=== PATIENT | male | born 2000 | race Hispanic/Latino ===

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

== ENCOUNTER 2024-09-02 01:25 | Emergency (ER) | payer SELFPAY ==
[2024-09-02] MEDS ORDERED: IBUPROFEN 400 MG TAB ONE (01:54)
[2024-09-02] MEDS ORDERED: ONDANSETRON 4 MG (ODT) TAB ONE (01:54)
[2024-09-02 02:12] LABS: Influenza A Ag Negative
[2024-09-02 02:13] LABS: Influenza B Ag Negative; SARS-CoV-2 Antigen Rapid Res Negative (Negative)
--- NOTE | 2024-09-02 02:40 | ER ---
Nurse's Notes [facility] Name: Josh Malcolm Age: 24 yrs Sex: Male : 2000 Arrival Date: 09/02/2024 Time: 01:25 Bed 6 Private MD: Diagnosis: Acute tonsillitis, unspecified;Cough Presentation: 09/02 01:46 Chief complaint: Patient states: I have fever headache n/v, chills and body aches I bm8 just don't feel good. Coronavirus screen: At this time, the client does not indicate any symptoms associated with coronavirus-19. Ebola Screen: Patient negative for fever greater than or equal to 101.5 degrees Fahrenheit, and additional compatible Ebola Virus Disease symptoms Patient denies exposure to infectious person. Patient denies travel to an Ebola-affected area in the 21 days before illness onset. No symptoms or risks identified at this time. Initial Sepsis Screen: Does the patient meet any 2 criteria? No. Patient's initial sepsis screen is negative. Does the patient have a suspected source of infection? No. Patient's initial sepsis screen is negative. Risk Assessment: Do you want to hurt yourself or someone else? Patient reports no desire to harm self or others. Onset of symptoms was September 01, 2024 at 12:00. 01:46 Method Of Arrival: Ambulatory bm8 01:46 Acuity: BOYD 4 bm8 Triage Assessment: 01:48 General: Appears in no apparent distress. comfortable, Behavior is calm, cooperative, bm8 appropriate for age. Pain: Complains of pain in generalized body aches Pain currently is 8 out of 10 on a pain scale. EENT: Throat is reddened Reports nasal congestion. Neuro: No deficits noted. Level of Consciousness is awake, alert, obeys commands, Oriented to person, place, time, situation, Appropriate for age. Cardiovascular: Denies chest pain, Heart tones S1 S2 present Capillary refill < 3 seconds in bilateral fingers Patient's skin is warm and dry. Respiratory: Airway is patent Trachea midline Respiratory effort is even, unlabored, Respiratory pattern is regular, symmetrical, Breath sounds are clear bilaterally. GI: Reports nausea, vomiting. : No signs and/or symptoms were reported regarding the genitourinary system. Derm: No signs and/or symptoms reported regarding the dermatologic system. Musculoskeletal: No signs and/or symptoms reported regarding the musculoskeletal system. Historical: - Allergies: 01:48 No Known Allergies; bm8 - Home Meds: 01:48 None [Active]; bm8 - PMHx: 01:48 None; bm8 - PSHx: 01:48 None; bm8 - Immunization history:: Adult Immunizations up to date. - Infectious Disease History:: Denies. - Social history:: Smoking status: Patient denies any tobacco usage or history of. Screenin:51 [facility] ED Fall Risk Assessment (Adult) History of falling in the last 3 months, bm8 including since admission No falls in past 3 months (0 pts) Confusion or Disorientation No (0 pts) Intoxicated or Sedated No (0 pts) Impaired Gait No (0 pts) Mobility Assist Device Used No (0 pt) Altered Elimination No (0 pt) Score/Fall Risk Level 0 - 2 = Low Risk Oriented to surroundings, Maintained a safe environment, Educated pt \T\ family on fall prevention, incl call for assistance when getting out of bed, Assessed \T\ reinforced patient's understanding of fall precautions, Hourly rounding (assess needs \T\ fall precautionary measures) done, Used ambulatory aids as needed (educated on \T\ assisted with), Used gait belt as appropriate. Abuse screen: Denies threats or abuse. Nutritional screening: No deficits noted. Tuberculosis screening: No symptoms or risk factors identified. Assessment: 01:50 Reassessment: see triage assessment. bm8 Vital Signs: 01:46 BP 144 / 78; Pulse 105; Resp 20; Temp 100.6; Pulse Ox 97% ; Weight 136.08 kg; Height 5 bm8 ft. 10 in. ; Pain 8/10; 02:50 BP 154 / 83; Pulse 92; Resp 17; Temp 99.6; Pulse Ox 98% on R/A; dd2 01:46 Body Mass Index 43.05 (136.08 kg, 177.8 cm) bm8 01:46 Pain Scale: Adult bm8 [place] Coma Score: 01:51 Eye Response: spontaneous(4). Motor Response: obeys commands(6). Verbal Response: bm8 oriented(5). Total: 15. ED Course: 01:27 Patient arrived in ED. vk 01:28 Agusto Parra PA is PHCP. cp 01:28 Agusto Thompson MD is Attending Physician. cp 01:48 Triage completed. bm8 01:48 Group A Streptococcus Rapid Sent. vk 01:48 COVID-19 Ag + Flu A+B Ag Sent. vk 01:48 Arm band placed on right wrist. bm8 01:51 No provider procedures requiring assistance completed. COVID swab sent to lab. Flu bm8 and/or RSV swab sent to lab. Strep swab sent to lab. Patient maintains SpO2 saturation greater than 95% on room air. 01:51 Patient has correct armband on for positive identification. Client placed on continuous bm8 cardiac and pulse oximetry monitoring. NIBP monitoring applied. Pulse ox on. NIBP on. Door closed. Noise minimized. Warm blanket given. Pillow given. Verbal reassurance given. Head of bed elevated. 02:11 XRAY Chest Pa And Lat (2 Views) In Process Unspecified. EDMS 02:50 Patient did not have IV access during this emergency room visit. dd2 02:50 Provided Education on: D/C EDUCATION AND INSTRUCTION. dd2 Administered Medications: 01:57 Drug: Ibuprofen PO 800 mg PO once Route: PO; bm8 01:57 Drug: Ondansetron PO 4 mg PO once Route: PO; bm8 02:54 Drug: Amoxicillin-Clavulanate PO 875 mg PO once Route: PO; dd2 Medication: 01:51 VIS not applicable for this client. bm8 Outcome: 02:40 Discharge ordered by . cp 02:50 Discharged to home ambulatory, dd2 02:50 Condition: stable 02:50 Discharge instructions given to patient, Instructed on discharge instructions, follow up and referral plans. medication usage, Demonstrated understanding of instructions, follow-up care, medications, Prescriptions given X 3, 03:11 Patient left the ED. dd2 Signatures: Dispatcher [employer] EDPA Agusto Parra PA PA cp Kruse, Vivian vk McDonald, Brad, RN RN bm8 WESLEY GRAHAM RN RN dd2
--- NOTE | 2024-09-02 02:40 | EDPHYS ---
Physician Documentation [facility] Name: Josh Malcolm Age: 24 yrs Sex: Male : 2000 Arrival Date: 09/02/2024 Time: 01:25 Bed 6 Private MD: ED Physician Agusto Thompson HPI: 09/02 01:45 This 24 yrs old Male presents to ER via Ambulatory with complaints of Fever, cp Flu Symptoms. 01:45 The patient reports fever, with an emergency department temperature of 100.6 degrees cp Fahrenheit. Onset: The symptoms/episode began/occurred yesterday. Associated signs and symptoms: Pertinent positives: cough, nausea, sore throat, general weakness, Pertinent negatives: diarrhea, skin rash, vomiting. Severity of symptoms: in the emergency department the symptoms are unchanged despite home interventions. Historical: - Allergies: 01:48 No Known Allergies; bm8 - Home Meds: 01:48 None [Active]; bm8 - PMHx: 01:48 None; bm8 - PSHx: 01:48 None; bm8 - Immunization history:: Adult Immunizations up to date. - Infectious Disease History:: Denies. - Social history:: Smoking status: Patient denies any tobacco usage or history of. ROS: 01:50 Constitutional: Positive for body aches, fever, cp 01:50 Eyes: Negative for injury, pain, redness, and discharge, cp 01:50 ENT: Positive for sore throat, Negative for drainage from ear(s), ear pain, difficulty swallowing, difficulty handling secretions, 01:50 Cardiovascular: Negative for chest pain, palpitations, 01:50 Respiratory: Positive for cough, Negative for shortness of breath, wheezing, 01:50 Abdomen/GI: Negative for abdominal pain, vomiting, diarrhea, constipation, 01:50 Neuro: Positive for weakness, Negative for altered mental status, 01:50 All other systems are negative, Exam: 01:55 Constitutional: The patient appears in no acute distress, alert, awake, non-toxic, well cp developed, well nourished, obese, 01:55 Head/Face: Normocephalic, atraumatic. cp 01:55 Eyes: Periorbital structures: appear normal, Conjunctiva: normal, no exudate, no injection, Sclera: no appreciated abnormality, Lids and lashes: appear normal, bilaterally, 01:55 ENT: External ear(s): are unremarkable, Ear canal(s): are normal, clear, TM's: dullness, bilaterally, Nose: is normal, Mouth: Lips: moist, Oral mucosa: moist, Posterior pharynx: Airway: no evidence of obstruction, patent, Tonsils: bilaterally enlarged, with erythema, with exudate, 01:55 Neck: ROM/movement: Meningeal signs: are not present, 01:55 Chest/axilla: Inspection: :55 Cardiovascular: Rate: tachycardic, 01:55 Respiratory: the patient does not display signs of respiratory distress, Respirations: normal, no use of accessory muscles, no retractions, labored breathing, is not present, Breath sounds: are clear throughout, no decreased breath sounds, no stridor, no wheezing, 01:55 Abdomen/GI: Inspection: obese Palpation: abdomen is soft and non-tender, in all quadrants, :55 Skin: no rash present. Vital Signs: 01:46 BP 144 / 78; Pulse 105; Resp 20; Temp 100.6; Pulse Ox 97% ; Weight 136.08 kg; Height 5 bm8 ft. 10 in. ; Pain 8/10; 02:50 BP 154 / 83; Pulse 92; Resp 17; Temp 99.6; Pulse Ox 98% on R/A; dd2 01:46 Body Mass Index 43.05 (136.08 kg, 177.8 cm) bm8 01:46 Pain Scale: Adult bm8 [place] Coma Score: 01:51 Eye Response: spontaneous(4). Motor Response: obeys commands(6). Verbal Response: bm8 oriented(5). Total: 15. MDM: 01:36 Medical Screening Exam initiated cp 02:40 Data reviewed: vital signs, nurses notes, lab test result(s), radiologic studies, plain cp films, and as a result, I will discharge patient. 02:40 Differential diagnosis: viral Infection, bacterial infection, URI, bronchitis, cp gastroenteritis, meningitis. I considered the following discharge prescriptions or medication management in the emergency department Medications were administered in the Emergency Department. See MAR. Counseling: I had a detailed discussion with the patient and/or guardian regarding the historical points, exam findings, and any diagnostic results supporting the discharge/admit diagnosis, the presence of at least one elevated blood pressure reading (>120/80) during this emergency department visit, to return to the emergency department if symptoms worsen or persist or if there are any questions or concerns that arise at home. Response to treatment: the patient's symptoms have mildly improved after treatment, and as a result, I will discharge patient. 09/02 01:42 Order name: COVID-19 Ag + Flu A+B Ag cp 09/02 01:42 Order name: Group A Streptococcus Rapid cp 09/02 02:11 Order name: Throat Culture [facility] 09/02 01:42 Order name: XRAY Chest Pa And Lat (2 Views) cp Administered Medications: 01:57 Drug: Ibuprofen PO 800 mg PO once Route: PO; bm8 01:57 Drug: Ondansetron PO 4 mg PO once Route: PO; bm8 02:54 Drug: Amoxicillin-Clavulanate PO 875 mg PO once Route: PO; dd2 Disposition Summary: 09/02/24 02:40 Discharge Ordered Notes: Location: Home cp Problem: new cp Symptoms: have improved cp Condition: Stable cp Diagnosis - Acute tonsillitis, unspecified cp - Cough cp Followup: cp - With: Private Physician - When: 2 - 3 days - Reason: Worsening of condition Discharge Instructions: - Discharge Summary Sheet cp - Tonsillitis cp - Cough, Adult cp Forms: - Medication Reconciliation Form cp - Antibiotic Education cp - Prescription Opioid Use cp - Patient Portal Instructions cp - Leadership Thank You Letter cp - Work release form dd2 Prescriptions: - Bromfed DM 2-30-10 mg/5 mL Oral syrup - administer 10 milliliter ORAL route every 6 hours as needed for cough; 240 cp milliliter; Refills: 0, Product Selection Permitted - Augmentin 875-125 mg Oral Tablet - take 1 tablet ORAL route every 12 hours for 10 days; 20 tablet; Refills: 0, cp Product Selection Permitted - Ibuprofen 800 mg Oral Tablet - take 1 tablet ORAL route every 8 hours As needed take with food; 30 tablet; cp Refills: 0, Product Selection Permitted Addendum: 09/04/2024 15:36 Co-signature as Attending Physician, Agusto Thompson MD I agree with the assessment and c rojas plan of care. Signatures: Dispatcher [employer] Agusto Wood MD MD cha Page, Corey, PA PA cp McDonald, Brad, RN RN bm8 WESLEY GRAHAM, RN RN dd2
[2024-09-02] MEDS ORDERED: AMOX/K CLAV 875 MG TAB ONE (02:51)
[2024-09-02 03:17] VITALS: BP 154/83; TEMP 99.6; O2SAT 98
--- NOTE | 2024-09-02 04:33 | RAD REPORT ---
EXAM DESCRIPTION: XR CHEST 2 VIEWS 09/02/2024 3:19 AM CDT CLINICAL HISTORY: 24 years, Male, Cough. COMPARISON: None. FINDINGS: 2 views of the chest (PA and lateral projections) were obtained. No prior films are available at th is time for comparison. There is normal lung volume. Mediastinum: The cardiomediastinal silhouette appears normal in size and shape. Lungs: Bilateral lower lobes zones demonstrate small linear densities perhaps corresponding to atelec tasis. Heart: The heart is normal in size. Thoracic aorta: The thoracic aorta demonstrate to be normal. Pulmonary vasculature: The pulmonary vasculature is normal in distribution. Pleura: The costophrenic angles demonstrate to be sharp. Osseous structures: The bony structures demonstrate to be within normal limits. Other: None. IMPRESSION: Bilateral lower lobe small linear densities perhaps corresponding to atelectasis. Electronically signed by: Augustine Escalante MD 09/02/2024 03:45 AM CDT RP Due to temporary technical issues with the PACS/[employer] reporting system, reports are being camilo d by the in-house radiologist without review as a courtesy to ensure prompt reporting the interpreting radiologist is fully responsible for the content of the report. Transcribed Date/Time: 09/02/2024 4:33 AM
== END 2024-09-02 03:11 | disposition home or self-care (01) ==
LOC: ER 01:25
DX: J03.90 Acute tonsillitis, unspecified (principal); Z11.52 Encounter for screening for COVID-19
CPT/HCPCS: 36415; 71046; 87070; 87428; 99284; Q0162